=== PATIENT | male | born 1975 | race Caucasian/White ===

== ENCOUNTER 2018-03-23 22:05 | Inpatient (IN) ==
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
[2018-03-24] MEDS: Morphine Inj 4 MG/ML Vial IV.PUSH PRN ×6 (00:30→21:52)
[2018-03-24] MEDS: Pantoprazole Inj 40 MG Vial IV.PUSH SCH ×2 (00:30→23:15)
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
[2018-03-24] MEDS: Sod Chloride 0.9% Inj 1,000 ML IV.CONT SCH ×3 (02:40→21:14)
[2018-03-24 03:27] LABS: Activated Partial Thrombo Time 24.9 sec (24.3-30.1); INR 1.1 Ratio
[2018-03-24] MEDS: Senna/Docusate Sodium 8.6/50 MG Tablet PO SCH ×2 (09:01→21:07)
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
[2018-03-24] MEDS ORDERED: QUETIAPINE 300 MG PO SCH (15:57)
[2018-03-24] MEDS: Divalproex 500 MG ER Tablet PO SCH ×2 (18:41→21:07)
[2018-03-24] MEDS: lamoTRIgine 25 MG TABLET PO SCH (21:06)
[2018-03-24 23:15] VITALS: RESP 18
[2018-03-25] MEDS: Morphine Inj 4 MG/ML Vial IV.PUSH PRN (00:45)
[2018-03-25 05:38] LABS: Baso % (Auto) 0.2 % (0.0-2.0); Eos % (Auto) 0.3 % (0.0-4.0); Hematocrit 44.2 % (39.0-51.0); Hemoglobin 15.3 gm/dL (13.0-17.0); Lymph # (Auto) 1.4 th/mm3 (1.0-4.8); Lymph % (Auto) 22.6 % (9.0-44.0); Mean Corpuscular HGB Conc 34.7 % (32.0-36.0); Mean Corpuscular Hemoglobin 34.4 pg (27.0-34.0); Mean Corpuscular Volume 99.1 fL (80.0-100.0); Mean Platelet Volume 8.5 fL (7.0-11.0); Mono # (Auto) 0.5 th/mm3 (0.0-0.9); Mono % (Auto) 7.9 % (0.0-8.0); Neut # (Auto) 4.4 th/mm3 (1.8-7.7); Platelet Count 144 th/mm3 (150-450); Red Blood Count 4.46 mil/mm3 (4.50-5.90); Red Cell Distribution Width 12.1 % (11.6-17.2); White Blood Count 6.4 th/mm3 (4.0-11.0)
[2018-03-25 05:54] LABS: Alanine Aminotransferase 18 U/L (12-78); Albumin 3.3 g/dL (3.4-5.0); Anion Gap 7 meq/L (5-15); Aspartate Aminotransferase 12 U/L (15-37); Blood Urea Nitrogen 5 mg/dL (7-18); Calcium 7.8 mg/dL (8.5-10.1); Carbon Dioxide 26.1 meq/L (21.0-32.0); Chloride 109 meq/L (98-107); Glomerular Filtration Rate Greater Than 89 mL/min (>89); Glucose,Random 99 mg/dL (74-106); Potassium 3.9 meq/L (3.5-5.1); Sodium 142 meq/L (136-145)
[2018-03-25 05:56] LABS: Alkaline Phosphatase 52 U/L (45-117); Total Protein 6.4 g/dL (6.4-8.2)
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
[2018-03-25] MEDS: Sod Chloride 0.9% Inj 1,000 ML IV.CONT SCH (09:07)
[2018-03-25] MEDS: lamoTRIgine 25 MG TABLET PO SCH (09:08)
[2018-03-25] MEDS: Senna/Docusate Sodium 8.6/50 MG Tablet PO SCH (09:09)
[2018-03-25] MEDS: Divalproex 500 MG ER Tablet PO SCH (09:12)
[2018-03-25 12:29] VITALS: O2SAT 99
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
[2018-03-25 16:57] VITALS: BP 149/87; PULSE 89; TEMP 98.3
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
== END 2018-03-25 16:19 | disposition left against medical advice (07) | DRG 125 ==
LOC: NEPE 22:05 → NEDA 03-24 00:05 → N06 03-24 03:02
PROVIDERS: ADMIT Surgery; ATTEND Surgery
CPT/HCPCS: 70450; 71010; 71045; 72170; 73130; 80053; 85025; 85610; 85730; 94150; 97161; 99285; C9113; J2270; J2405; J2765; J7030